=== PATIENT | male | born 1975 | race Native Hawaiian/Other Pacific Islander ===

== ENCOUNTER 2018-10-09 09:34 | Emergency (ER) | payer SELFPAY ==
[2018-10-09 09:43] VITALS: BP 106/63
--- NOTE | 2018-10-09 10:40 | Emergency Department Report ---
- General Chief Complaint: Laceration/Recheck/Suture Stated Complaint: (L) SIDE CHEST INJURY/PAIN Time Seen by Provider: 10/09/18 09:53 Source: patient Mode of arrival: Ambulatory Limitations: No Limitations - History of Present Illness Initial Comments: Mr. Frazier is a 42-year-old male who cut his abdomen without latex all 12 days ago. He attempted to care for it at home. However it would not heal because edges were approximated. His tetanus status is up-to-date. He desires suture repair. He understands the risk of infection with delayed wound closure. 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 -: days(s) (12) Location: abdomen Place: other (while helping a friend) Associated Symptoms: none - Related Data Allergies Allergy/AdvReac Type Severity Reaction Status Date / Time aspirin Allergy Unknown Verified 10/09/18 09:38 shellfish derived Allergy Unknown Verified 10/09/18 09:37 ED Review of Systems ROS: Stated complaint: (L) SIDE CHEST INJURY/PAIN Other details as noted in HPI Constitutional: denies: fever, malaise Skin: lesions ED Past Medical Hx - Past Medical History Previous Medical History?: No - Surgical History Past Surgical History?: No - Social History Smoking Status: Never Smoker Substance Use Type: Alcohol ED Physical Exam - General Limitations: No Limitations General appearance: alert, in no apparent distress - Head Head exam: Present: atraumatic, normocephalic - Eye Eye exam: Absent: scleral icterus, conjunctival injection - Neurological Exam Neurological exam: Present: alert, oriented X3 - Psychiatric Psychiatric exam: Present: normal affect - Skin Skin exam: Present: other (large laceration diagonal 12 cm LUQ, 4 cm dehiscence at the superior portion deep to subcutaneous) ED Course Vital Signs 10/09/18 09:38 Temperature 98.1 F Pulse Rate 83 Respiratory 16 Rate Blood Pressure 106/63 O2 Sat by Pulse 99 Oximetry - Laceration /Wound Repair Left Abdomen Wound Location: abdomen Wound Length (cm): 4 Wound's Depth, Shape: into muscle Wound Explored: clean Irrigated w/ Saline (ccs): 150 Betadine Prep?: Yes Anesthesia: 1% Lidocaine Volume Anesthetic (ccs): 10 Wound Debrided: moderate Wound Repaired With: sutures Suture Size/Type: 3:0, nylon Number of Sutures: 6 Layer Closure?: No Sterile Dressing Applied?: No Progress: bandage 6 sutures simple interrupted ED Medical Decision Making - Medical Decision Making Delayed wound closure 12 days after initial injury with suture repair, discharge instructions provided with [place]ian interpretation per language line. Fortunately the wound was not infected. Instructed to return in 10-14 days for suture removal. Critical care attestation.: If time is entered above; I have spent that time in minutes in the direct care of this critically ill patient, excluding procedure time. ED Disposition Clinical Impression: Laceration of abdominal wall Disposition: DC- TO HOME OR SELFCARE Is pt being admited?: No Does the pt Need Aspirin: No Condition: Stable Instructions: Laceration (ED) Additional Instructions: Por favor devulvalo en 10-14 pulliam para retirar la sutura. Forms: Work/School Release Form(ED) Print Language: LATVIAN
== END 2018-10-09 10:48 | disposition home or self-care (01) ==
LOC: ED 09:34
DX: S31.119A Laceration without foreign body of abdominal wall, unspecified quadrant without penetration into peritoneal cavity, initial encounter (principal); Z88.6 Allergy status to analgesic agent; Z91.013 Allergy to seafood; X58.XXXA Exposure to other specified factors, initial encounter; Y93.89 Activity, other specified; Y92.89 Other specified places as the place of occurrence of the external cause; Y99.8 Other external cause status

== ENCOUNTER 2019-04-11 18:38 | Emergency (ER) | payer OTHER ==
[2019-04-11] MEDS ORDERED: predniSONE 20 MG TAB PO ONE (23:08)
[2019-04-11] MEDS ORDERED: IBUPROFEN 800 MG TAB PO ONE (23:08)
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
[2019-04-12 01:09] VITALS: BP 106/70
== END 2019-04-12 00:15 | disposition home or self-care (01) ==
LOC: ED 18:38
DX: S39.012A Strain of muscle, fascia and tendon of lower back, initial encounter (principal); Z88.6 Allergy status to analgesic agent; Z91.013 Allergy to seafood; V89.2XXA Person injured in unspecified motor-vehicle accident, traffic, initial encounter; Y93.89 Activity, other specified; Y92.410 Unspecified street and highway as the place of occurrence of the external cause; Y99.8 Other external cause status
CPT/HCPCS: 72100; 99283; J7512